=== PATIENT | male | born 1980 | race Caucasian/White ===

== ENCOUNTER 2024-07-10 17:22 | Inpatient (IN) | payer BC ==
[~2024-07-10] VITALS: Ht 172.7 cm; Wt 78.3 kg
[2024-07-10 18:54] LABS: EOSINOPHILS % (AUTO) 0 % (0-6); MONOCYTES # (AUTO) 0.8 X10'3 (0-0.9)
[2024-07-10 18:56] LABS: BASOPHILS % (AUTO) 0.1 % (0-1); HEMATOCRIT 56.2 % (42.0-52.0); LYMPHOCYTES % (AUTO) 7.1 % (21-51); MEAN CORPUSCULAR HEMOGLOBIN 28.8 PG (27.0-31.0); MEAN CORPUSCULAR HGB CONC 33.3 g/dL (33.0-36.5); MEAN CORPUSCULAR VOLUME 86.4 FL (78-98); MEAN PLATELET VOLUME 8.8 FL (7.4-10.4); MONOCYTES % (AUTO) 5.7 % (2-12); NEUTROPHILS # (AUTO) 12.1 X10'3 (1.8-7.7); NEUTROPHILS % (AUTO) 87.1 % (42-75); PLATELET COUNT 331 X10'3 (140-440); RED BLOOD COUNT 6.51 X10'6 (4.70-6.10); RED CELL DISTRIBUTION WIDTH 13.6 % (11.5-14.5); WHITE BLOOD COUNT 13.9 X10'3 (4.5-11.0)
[2024-07-10 19:02] LABS: HEMOGLOBIN 18.7 g/dl (14.0-17.9)
[2024-07-10 20:20] LABS: ALANINE AMINOTRANSFERASE 28 U/L (12-78); ALBUMIN/GLOBULIN RATIO 1.3 (1.1-1.5); ALKALINE PHOSPHATASE 93 IU/L (46-116); ANION GAP 21 (8-16); ASPARTATE AMINO TRANSFERASE 31 U/L (10-37); BILIRUBIN,TOTAL 0.9 MG/DL (0.1-1.0); BLOOD UREA NITROGEN 29 MG/DL (7-18); BUN/CREATININE RATIO 7.9 (10.0-20.0); CALCIUM 11.2 MG/DL (8.5-10.1); CHLORIDE 88 MMOL/L (99-107); CREATININE 3.69 MG/DL (0.60-1.10); GLUCOSE 174 MG/DL (70-104); LIPASE 34 U/L (16-77); POTASSIUM 3.9 MMOL/L (3.5-5.1); SODIUM 131 MMOL/L (135-145); TOTAL CARBON DIOXIDE 22.2 MMOL/L (24-32); TOTAL PROTEIN 10.5 G/DL (6.4-8.2); eCRCL 25 ML/MIN; eGFR 18 ML/MIN
[2024-07-10] MEDS: morphine 4 MG/ML inj SYRINge IV ONE (20:33)
[2024-07-10] MEDS: ondansetron/PF 4mg/2ml inj IV ONE (20:33)
[2024-07-10] MEDS: mag hydrox/Alum hydrox/simeth 30ml oral suspension PO ONE (20:34)
[2024-07-10] MEDS: LIDOcaine 2% Viscous 15ml cup MM ONE (20:34)
[2024-07-10] MEDS: famotidine/PF 10 mg/ml inj IV ONE (20:34)
[2024-07-10] MEDS: normal saline 1000ML IV soln IVB ONE (20:50)
[2024-07-10 21:41] LABS: CREATINE KINASE 513 U/L (39-308)
[2024-07-11] MEDS ORDERED: magnesium hydroxide 30ml (MOM) UD suspension PO PRN (00:40)
[2024-07-11] MEDS ORDERED: magnesium Cl slow-release 64mg tablet PO PRN (00:40)
[2024-07-11] MEDS ORDERED: morphine 2 MG/ML inj. syringe IV PRN (00:40)
[2024-07-11] MEDS ORDERED: potassium Cl 20 mEq SR tablet PO PRN ×2 (00:40)
[2024-07-11] MEDS ORDERED: mag hydrox/Alum hydrox/simeth 30ml oral suspension PO PRN (00:40)
[2024-07-11] MEDS ORDERED: magnesium sulf-water 4G/100mL 100 ML IV PRN (00:40)
[2024-07-11] MEDS ORDERED: acetaminophen 325mg tablet PO PRN (00:40)
[2024-07-11] MEDS ORDERED: HYDROcodone/acetaminophen 5mg/325mg tablet PO PRN (00:40)
[2024-07-11] MEDS ORDERED: magnesium sulf-water 2g/50mL 50 ML IV PRN (00:40)
[2024-07-11] MEDS ORDERED: potassium Cl 40MEQ/1/2NS 520ml 520 ML IV PRN (00:40)
[2024-07-11] MEDS ORDERED: ondansetron/PF 4mg/2ml inj IV PRN (00:40)
[2024-07-11 00:49] LABS: ABG BASE EXCESS -0.9 mmol/L (-2.0-3.0); ABG HCO3 21.3 mmol/L (21.0-28.0); ABG OXYGEN SATURATION 97.7 % (94.0-98.0); ABG PCO2 (T) 29.7 mmHg (35.0-48.0); ABG PH (T) 7.472 (7.350-7.450); ALLEN'S TEST POSITIVE; FCOHb 0.3 % (0.5-1.5); FHHb 2.3 % (0.0-5.0); FMetHb 0.3 % (0.0-1.5); FO2Hb 97.1 % (94.0-98.0); PATIENT TEMPERATURE 37.1; TOTAL HEMOGLOBIN 17.3 G/dl (13.5-17.5)
[2024-07-11] MEDS ORDERED: pantoprazole 40mg IV 80 MG in normal saline 100ml IV soln 100 ML IV ONE (01:15)
[2024-07-11] MEDS: normal saline 1000ml 1,000 ML IV SCH (01:43)
[2024-07-11] MEDS: pantoprazole 40 MG vial IV ONE (01:44)
[2024-07-11 01:45] LABS: ETHANOL < 10 MG/DL (<10); PHOSPHORUS 5.1 MG/DL (2.3-4.5)
[2024-07-11] MEDS: normal saline 1000ml 1,000 ML IVB ONE (03:11)
[2024-07-11] MEDS ORDERED: NO HOME MEDS (03:47)
[2024-07-11 05:40] LABS: MAGNESIUM 2.4 MG/DL (1.5-2.4); POTASSIUM 3.7 MMOL/L (3.5-5.1)
[2024-07-11] MEDS: K and/or MAG REPLACEMENT MC SCH (06:23)
[2024-07-11] MEDS: docusate sod 100mg capsule PO SCH (06:24)
[2024-07-11] MEDS: heparin, porcine 5000 units/ml vial SQ SCH (06:24)
[2024-07-11] MEDS: pantoprazole 40MG/NS 100ML BAG 100 ML IV SCH (06:36)
[2024-07-11 07:58] LABS: BASOPHILS % (AUTO) 0.2 % (0-1); EOSINOPHILS % (AUTO) 0.2 % (0-6); HEMOGLOBIN 15.3 g/dl (14.0-17.9); LYMPHOCYTES # (AUTO) 1.5 X10'3 (1.1-4.8); LYMPHOCYTES % (AUTO) 14.6 % (21-51); MEAN CORPUSCULAR HEMOGLOBIN 29.5 PG (27.0-31.0); MEAN CORPUSCULAR VOLUME 86.8 FL (78-98); MEAN PLATELET VOLUME 8.6 FL (7.4-10.4); MONOCYTES # (AUTO) 1.4 X10'3 (0-0.9); MONOCYTES % (AUTO) 13.4 % (2-12); NEUTROPHILS # (AUTO) 7.4 X10'3 (1.8-7.7); NEUTROPHILS % (AUTO) 71.6 % (42-75); PLATELET COUNT 254 X10'3 (140-440); RED BLOOD COUNT 5.19 X10'6 (4.70-6.10); RED CELL DISTRIBUTION WIDTH 13.8 % (11.5-14.5); WHITE BLOOD COUNT 10.3 X10'3 (4.5-11.0)
[2024-07-11 08:17] LABS: ALANINE AMINOTRANSFERASE 23 U/L (12-78); ALBUMIN 3.9 G/DL (3.4-5.0); ALBUMIN/GLOBULIN RATIO 1.3 (1.1-1.5); ALKALINE PHOSPHATASE 57 IU/L (46-116); ANION GAP 6 (8-16); ASPARTATE AMINO TRANSFERASE 27 U/L (10-37); BILIRUBIN,TOTAL 0.9 MG/DL (0.1-1.0); BLOOD UREA NITROGEN 29 MG/DL (7-18); BUN/CREATININE RATIO 17.5 (10.0-20.0); CALCIUM 8.7 MG/DL (8.5-10.1); CHLORIDE 100 MMOL/L (99-107); CREATININE 1.66 MG/DL (0.60-1.10); GLUCOSE 132 MG/DL (70-104); POTASSIUM 4.3 MMOL/L (3.5-5.1); SODIUM 135 MMOL/L (135-145); TOTAL CARBON DIOXIDE 29.3 MMOL/L (24-32); eCRCL 56 ML/MIN; eGFR 46 ML/MIN
[2024-07-11] MEDS ORDERED: pantoprazole 40 MG vial IV SCH (12:50)
[2024-07-11 13:28] LABS: LIPASE 23 U/L (16-77)
[2024-07-11 13:45] LABS: HEMOGLOBIN A1C 5.8 % (4.5-6.2)
[2024-07-11 13:51] VITALS: BP 127/75; PULSE 77; RESP 16; TEMP 98.7; O2SAT 98
[2024-07-11 13:52] VITALS: RESP 16; O2SAT 98
[2024-07-11 17:31] LABS: BILIRUBIN,URINE NEGATIVE (Neg); CLARITY,URINE CLEAR (Clear); COLOR,URINE YELLOW (Yellow); GLUCOSE, URINE NEGATIVE (Neg); KETONES,URINE NEGATIVE (Neg); LEUKOCYTE ESTERASE ,URINE NEGATIVE (Neg); NITRITES, URINE NEGATIVE (Neg); OCCULT BLOOD,URINE NEGATIVE (Neg); PROTEIN,URINE TRACE mg/dl (Neg); UROBILINOGEN,URINE 0.2 E.U/dL (0.2-1.0)
[2024-07-11 17:36] LABS: UA COLLECTION TYPE NON-SPECIFIED
[2024-07-11 17:38] LABS: BACTERIA,URINE FEW /HPF (Neg); MUCUS STRANDS FEW /LPF (Neg); RBC,URINE 0-2 /HPF (0-2); SQUAMOUS EPITHELIAL CELL,UR FEW /LPF (FEW); WBC,URINE 0-4 /HPF (0-4)
[2024-07-11 17:45] LABS: URINE AMPHETAMINE SCREEN NEGATIVE (Neg); URINE BARBITUATE SCREEN NEGATIVE (Neg); URINE BENZODIAZEPINES SCREEN NEGATIVE (Neg); URINE CANNABINOID SCREEN POSITIVE (Neg); URINE COCAINE SCREEN NEGATIVE (Neg); URINE METHADONE SCREEN NEGATIVE (Neg); URINE OPIATE SCREEN POSITIVE (Neg); URINE PHENCYCLIDINE SCREEN NEGATIVE (Neg)
== END 2024-07-11 18:12 | disposition left against medical advice (07) | DRG 391 ==
LOC: ER 17:23 → ED HOLD 07-11 00:42 → SUR 3N 07-11 08:40
PROVIDERS: ADMIT Surgery; ATTEND Family Medicine
PROC: BW211ZZ Computerized Tomography (CT Scan) of Abdomen and Pelvis using Low Osmolar Contrast (ICD-10-PCS; principal; 2024-07-09)
DX: K29.00 Acute gastritis without bleeding (principal); N17.0 Acute kidney failure with tubular necrosis; E87.1 Hypo-osmolality and hyponatremia; K21.9 Gastro-esophageal reflux disease without esophagitis; Z53.21 Procedure and treatment not carried out due to patient leaving prior to being seen by health care provider; E86.0 Dehydration; D75.1 Secondary polycythemia; E83.39 Other disorders of phosphorus metabolism; E83.52 Hypercalcemia
CPT/HCPCS: 36415; 36600; 71045; 74176; 80053; 80305; 80320; 81001; 82330; 82550; 82570; 82803; 83036; 83605; 83690; 83735; 83930; 83935; 83970; 84100; 84132; 84145; 84300; 85018; 85025; 87081; 99285; G0378; J2270; J2405; J2470; J3490; J7030